=== PATIENT | male | born 1975 | race Caucasian/White ===

== ENCOUNTER → 2016-12-04 | Outpatient (CLI) | payer OTHER ==
--- NOTE | 2016-12-04 08:35 | KCIC ---
PROCEDURE Left elbow 2 views. HISTORY Fall with left elbow pain and bruising. FINDINGS No fractures are identified. There is no joint effusion. Subcutaneous edema is noted along the dorsal and medial proximal forearm. The joint spaces and alignment of the elbow are maintained. IMPRESSION - Soft tissue swelling. No fracture. Electronically signed by: Anupam Desir (Dec 04, 2016 08:34:27)
== END | disposition home or self-care (01) ==
LOC: KCIC 08:09
PROVIDERS: ATTEND Family Medicine
DX: S50.02XA Contusion of left elbow, initial encounter (principal); R60.9 Edema, unspecified; M79.89 Other specified soft tissue disorders
CPT/HCPCS: 73070